=== PATIENT | male | born 1980 | race Caucasian/White ===

== ENCOUNTER → 2023-01-04 08:34 | Outpatient (BNVA) | payer OTHER, SELFPAY | PROVIDERS: PCP Family Medicine; Visit Provider Family Medicine | DX: Z00.00 Encounter for general adult medical examination without abnormal findings (principal); R73.09 Other abnormal glucose; Z51.81 Encounter for therapeutic drug level monitoring; Z13.220 Encounter for screening for lipoid disorders | CPT/HCPCS: 80053; 80061; 83036; 85025 ==

== ENCOUNTER → 2023-11-15 07:42 | Outpatient (BNVA) | payer OTHER, SELFPAY | PROVIDERS: PCP Family Medicine; Visit Provider Family Medicine | DX: Z51.81 Encounter for therapeutic drug level monitoring (principal); Z13.220 Encounter for screening for lipoid disorders; M25.50 Pain in unspecified joint | CPT/HCPCS: 80053; 80061; 84550; 85025 ==

== ENCOUNTER 2024-08-26 09:42 | Emergency (ER) | payer OTHER, SELFPAY ==
[2024-08-26] VITALS (7 sets, daily range): BP systolic 107–145; BP diastolic 65–98; PULSE 62–89; RESP 16–18; TEMP 36.6; O2SAT 93–99; BMI 29.8
[2024-08-26] MEDS: ketorolac 30 mg/mL INJ IVP (10:00)
[2024-08-26] MEDS: morphine 4 mg/mL SDV 1 mL IVP (10:00)
[2024-08-26] MEDS: orphenadrine 30 mg/mL Inj 2 mL 60 MG IVP (10:00)
[2024-08-26] MEDS: dexamethasone 10 mg/mL INJ IVP (10:00)
--- NOTE | 2024-08-26 10:36 | ED_ITS ---
HPI - Back Pain/Injury General: Chief Complaint: Back Pain/Injury Stated Complaint: low back pain Time Seen by Provider: 08/26/24 09:45 History of Present Illness: 43-year-old male presents to the emergen cy room complaining of low back pain. 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 He had fever chiropractor there was a bit concerned about a disc bulge. He has no radiation of pain into the neck or arms. He has not previously had advanced imaging of his back he has no fecal incontinence or urinary retention. No loss of sensation of the lower extremities. Associated symptoms: Deny abdominal pain, chills, dysuria, fever(s) or urinary urgency Related Data Previous Rx's Medication Instructions Recorded diclofenac sodium 75 mg 75 mg PO Q12H PRN pain #20 tabs 08/26/24 tablet,delayed release tizanidine 4 mg tablet 4 mg PO Q6H PRN muscle spasticity 08/26/24 #20 tabs Allergies Allergy/AdvReac Type Severity Reaction Status Date / Time No Known Allergies Allergy Verified 08/26/24 09:55 Review of Systems Const: Denies: fever(s) or chills Card: Denies: chest pain Resp: Denies: dyspnea GI: Denies: abdominal pain : Denies: dysuria, urinary frequency or urinary urgency Musc: Denies: neck pain or back pain Skin/Breast: Denies: rash PFSH ED PFSH: Surgical History No pertinent past surgical history Social History Smoking and tobacco/nicotine status: current every day tobacco/nicotine user (chew. 1 can a day ) smokeless tobacco Smokeless tobacco user: chewing tobacco Smokeless tobacco details: 1 can/day Alcohol intake: never Substance/Drug Use: never Additional social history: He has 4 daughters, has cattle and cuts hay - [employer] Current occupation: Works at [employer] Physical Exam Const: GENERAL APPEARANCE: cooperative ORIENTATION/CONSCIOUSNESS: Yes awake, Yes oriented to person, Yes oriented to place and Yes oriented to time HENMT: COMMON NORMALS: normocephalic, atraumatic and hearing grossly normal bilaterally HEAD & SCALP: normocephalic and atraumatic Resp: COMMON NORMALS: normal respiratory effort, No retractions, No use of accessory muscles and clear to auscultation bilaterally AUSCULTATION: clear to auscultation bilaterally Cardio: COMMON NORMALS: regular rate, regular rhythm and No murmurs present (Cardio) RATE: regular rate RHYTHM: regular rhythm GI: COMMON NORMALS: Soft to palpation and No hepatosplenomegaly present AUSCULTATION: Yes normoactive bowel sounds PALPATION: Yes Soft to palpation, No Tenderness to palpation present (GI), No Guarding due to palpation present (GI) and Yes No hepatosplenomegaly present Extremity: COMMON NORMALS: normal to inspection, capillary refill normal, no clubbing, cyanosis or edema, no calf tenderness and no pedal edema Neuro: SENSORIUM/ORIENTATION: Yes oriented to person, Yes oriented to place and Yes oriented to time Skin: COMMON NORMALS: no rashes or lesions noted GENERAL SKIN EXAM: no rashes or lesions noted Course Vital Signs: Vital signs: Vital Signs Temperature 97.9 F 08/26/24 09:49 Pulse Rate 72 08/26/24 13:30 Respiratory Rate 18 08/26/24 11:28 Blood Pressure 107/65 08/26/24 13:30 Pulse Oximetry 95 08/26/24 13:30 Oxygen Delivery Me thod Room Air 08/26/24 11:30 MDM - Back Pain/Injury Medical Decision Making Strain lumbar spine no sign of cauda equina. Start on diclofenac tizanidine. data center manager will make arrangements for follow-up. Medical Records I reviewed the patient's medical records. Labs I reviewed the patient's lab results. No radiology studies performed this visit Discharge Plan Discharge Patient Disposition: Home Clinical Impression: Strain of lumbar region Condition: Stable Prescriptions: New diclofenac sodium 75 mg tablet,delayed release (DR/EC) 75 mg PO Q12H PRN (Reason: pain) Qty: 20 0RF tizanidine 4 mg tablet 4 mg PO Q6H PRN (Reason: muscle spasticity) Qty: 20 0RF Rx Instructions: do not exceed 3 doses per 24 hrs Discharge Orders: Discharge ED (Routine); Ordered 08/26/24 Ordered By: Emmanuel Galindo Referrals: [place],Espinoza, MD [Primary Care Provider] - Patient Instructions: Opioid Safety, Pain Management Activity Restrictions/Additional Instructions: Thank you for choosing [facility] for your healthcare needs today. It is very important that you follow up as instructed or that you return to the Emergency Department should you have concerns or if your condition changes or worsens in any way. You are seen in the emergency room with complaint of low back pain. On exam there is no sign of cauda equina syndrome. Recommend that you start to steroid taper tomorrow use diclofenac or hydrocodone as needed along with tizanidine as a muscle relaxer. data center manager will make arrangements for you to follow-up with orthopedic spine surgery. Will also schedule you for an outpatient MRI of your low low back. Coding Level of Care Code ED [employer] for [employer]y Arcos
[2024-08-26] MEDS: HYDROmorphone 1 mg/mL INJ 1 mL IVP (11:28)
--- NOTE | 2024-08-26 11:42 | PC.NURSE ---
pt c/o feeling uncomfortable, offered pt x2 pillow, x2 blanket. pt denies any further needs/concerns at this time. updated pt on status of bed status/admit
--- NOTE | 2024-08-27 07:12 | DCPLANNER ---
faxed outpatient mri to scheduling
--- NOTE | 2024-08-27 07:18 | DCPLANNER ---
messaged ortho for er f/u
== END 2024-08-26 13:30 | disposition home or self-care (01) ==
PROVIDERS: Emergency Provider Family Medicine; PCP Family Medicine
DX: S39.012A Strain of muscle, fascia and tendon of lower back, initial encounter (principal); F17.220 Nicotine dependence, chewing tobacco, uncomplicated; X58.XXXA Exposure to other specified factors, initial encounter
CPT/HCPCS: 96374; 96375; 99284; J1100; J1171; J1885; J2270; J2360

== ENCOUNTER → 2024-12-25 07:53 | Outpatient (BNVA) | payer OTHER, SELFPAY | PROVIDERS: PCP Family Medicine; Visit Provider Family Medicine | DX: Z00.00 Encounter for general adult medical examination without abnormal findings (principal); Z51.81 Encounter for therapeutic drug level monitoring; Z13.6 Encounter for screening for cardiovascular disorders | CPT/HCPCS: 80053; 80061; 85025 ==